=== PATIENT | female | born 1990 | race Caucasian/White ===

== ENCOUNTER → 2018-08-19 | Outpatient (CLI) | payer OTHER | LOC: CAT 09:03 | DX: N20.0 Calculus of kidney (principal); Z90.49 Acquired absence of other specified parts of digestive tract ==

== ENCOUNTER → 2018-10-01 | Outpatient (CLI) | payer OTHER | LOC: CAT 11:29 | DX: N20.0 Calculus of kidney (principal); N83.202 Unspecified ovarian cyst, left side; J98.11 Atelectasis; Z88.8 Allergy status to other drugs, medicaments and biological substances; Z79.899 Other long term (current) drug therapy; Z90.49 Acquired absence of other specified parts of digestive tract ==

== ENCOUNTER → 2019-06-16 | Outpatient (CLI) | payer OTHER | LOC: ULTRA 07:57 | DX: K76.0 Fatty (change of) liver, not elsewhere classified (principal); R16.0 Hepatomegaly, not elsewhere classified; Z90.49 Acquired absence of other specified parts of digestive tract ==